=== PATIENT | male | born 1960 | race African-American/Black ===

== ENCOUNTER → 2018-07-28 | Outpatient (CLI) | payer OTHER ==
[~2018-07-28] MED LIST: BACTRIM DS TAB1 EACH PO; CIPROFLOXACIN500 M1 PO; LEXAPRO20 MG; METOPROLOL SUCC50 MG; MICARDIS 80 MG80 MG PO; MICARDIS HCT 81 EACH; NORCO 5-325 TA1 EACH PO; NORVASC10 MG; SIMVASTATIN40 MG; XANAX1 MG
== END ==
LOC: RAD 11:52
DX: S63.201A Unspecified subluxation of left index finger, initial encounter (principal); M19.042 Primary osteoarthritis, left hand; M25.561 Pain in right knee; M25.562 Pain in left knee; X58.XXXA Exposure to other specified factors, initial encounter; Y93.89 Activity, other specified; Y92.89 Other specified places as the place of occurrence of the external cause; Y99.8 Other external cause status

== ENCOUNTER → 2018-08-08 | Outpatient (CLI) | payer OTHER | LOC: RAD 11:34 | DX: M89.572 Osteolysis, left ankle and foot (principal); M89.571 Osteolysis, right ankle and foot ==

== ENCOUNTER → 2018-09-22 | Outpatient (CLI) | payer OTHER | LOC: CAT 08:59 | DX: M19.071 Primary osteoarthritis, right ankle and foot (principal); M25.572 Pain in left ankle and joints of left foot; R60.0 Localized edema ==

== ENCOUNTER → 2019-09-27 | Outpatient (CLI) | payer OTHER | LOC: ULTRA 09-26 13:08 → EDSTATUS 16:24 | PROVIDERS: ATTEND Family Medicine | DX: N43.3 Hydrocele, unspecified (principal) ==

== ENCOUNTER → 2021-04-22 | Outpatient (CLI) | payer OTHER | LOC: RAD 07:43 | PROVIDERS: ATTEND Family Medicine | DX: M51.36 Other intervertebral disc degeneration, lumbar region (principal); M76.9 Unspecified enthesopathy, lower limb, excluding foot; M16.0 Bilateral primary osteoarthritis of hip ==